=== PATIENT | female | born 1995 | race Caucasian/White ===

== ENCOUNTER → 2017-11-12 12:29 | Outpatient (CLI) | payer OTHER, SELFPAY ==
[2017-11-12 12:40] VITALS: BP 119/80; PULSE 58; RESP 16; TEMP 36.7; O2SAT 99; BMI 38.8
--- NOTE | 2017-11-12 12:46 | HTC.HP ---
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 History of Present Illness: 22 y.o.woman with Hemophilia B, heterozygous with 5% activity, comes in for follow up. She feels well, had 6 replacements therapies for D&C and joint pains. She feels well today. Power of Tester Vibrator Equipment: No Living Will: No Health History: Past Medical History (Last Reviewed 11/12/17 @ 12:39 by Tamra Rosen) Factor IX deficiency (Acute) Hemophilia B (Acute) Past Surgical History (Last Reviewed 11/12/17 @ 12:39 by Tamra Rosen) History of dilation and curettage (Acute) Family History (Last Reviewed 11/12/17 @ 12:39 by Tamra Rosen) Father Hemophilia Allergies/Adverse Reactions: Allergy/AdvReac Type Severity Reaction Status Date / Time aspirin AdvReac Severe Other Verified 11/12/17 12:39 Home Medications Medication Instructions Recorded No Known/Unobtainable [No Known 04/12/17 Home Medications] Risk Factors Social History Social History: No changes Smoking Status Never smoker Tobacco Risk Data: Tobacco Risk Smoking Status Never smoker Type of tobacco: Smokeless tobacco usage: Never Items/Day: Year started: Years used: Counseled to quit/cut down: Reason for no counseling performed: Reason for no pharmacotherapy: Tobacco use comments: Passive smoke exposure: Substance Risk Drug use: No Caffeine use [drinks/day]: 0 Alcohol use: No Type of alcohol: Drinks per day: Has patient felt the need to cut down: Has the patient been annoyed by complaints: Has the patient felt guilty about drinking: 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: Comments: Review of Systems Constitutional:: Denies: Fever, Sweats, Weight loss, Appetite change, Chills Cardiovascular:: Denies: Chest pain, Palpitations, Dyspnea on exertion, Orthopnea, PND, Shortness of breath Respiratory: Denies: Cough, Hemoptysis, Shortness of Breath, Wheezing Gastrointestinal:: Denies: Abdominal pain, Nausea, Vomiting, Diarrhea, Constipation, Hematochezia Genitourinary: Denies: Dysuria, Hematuria, 15, Flank pain Musculoskeletal:: Denies: Back pain, Myalgia, Arthralgia Skin: Denies: Rash, Skin Changes, Wounds Neurological:: Denies: Headache, Dizziness, Visual changes, Tinnitus, Hearing loss Psychiatric: Denies: Anxiety, Depression, Homicidal Ideations, Suicidal Ideations Vital Signs Height 5 ft 5 in Weight: 105.914 kg Weight in Pounds 233.5 lbs Pulse Ox 99 Temperature 98.1 F Pulse Rate 58 Respiratory Rate 16 Blood Pressure 119/80 Blood Pressure Position Sitting - Physical Exam General: Alert, Oriented x3, No apparent distress HEENT: Atraumatic, PERRLA, EOMI, Normocephalic Oropharynx:: Dry mucosa Neck:: Supple, Trachea midline. Negative for: JVD, bilateral Cardiac:: Regular rate, Regular rhythm, Normal S1, Normal S2. Negative for: Murmur Lungs: Clear to auscultation, Excusion symmetrical. Negative for: Rhonchi, Wheezes Abdomen:: Bowel sounds x 4, Soft, Non-tender, Non-distended. Negative for: Hepatosplenomegaly Extremities:: Negative for: Cyanosis, Edema Neurological: Neuro grossly intact Skin:: Negative for: Lesions, Rash, Petechiae, Ecchymosis Psychiatric:: Appropriate affect, Euthymic Lymphatics:: Negative for: Cervical lymphadenopathy, Supraclavicular lymphadenopathy, Axillary lymphadenopathy Assessment and Plan Hemophilia B, heterozygous with 5% activity. Clinically stable. Plan is to continue expectant management with factor replacement as needed. Primary Care Provider: Daryl Angela MD Referring Provider: Margarito Blancas MD
[2018-03-11 14:02] VITALS: BP 128/82; PULSE 89; RESP 14; TEMP 36.8; O2SAT 97; BMI 40.2
--- NOTE | 2018-03-11 14:23 | ONC.NEWHP3 ---
Subjective Date of Service:: 03/11/18 Chief Complaint: F/u for Hemophila B. History of Present Illness: 22 y.o.woman with Hemophilia B, heterozygous with 5% activity, comes in for follow up. She feels well, is 26 weeks . She feels well today. Power of Electric Meter Tester Helper: No Living Will: No Health History: Past Medical History (Last Reviewed 11/12/17 @ 12:39 by Tamra Rosen) Factor IX deficiency (Acute) Hemophilia B (Acute) Past Surgical History (Last Reviewed 11/12/17 @ 12:39 by Tamra Rosen) History of dilation and curettage (Acute) Family History (Last Reviewed 11/12/17 @ 12:39 by Tamra Rosen) Father Hemophilia Allergies/Adverse Reactions: Allergy/AdvReac Type Severity Reaction Status Date / Time aspirin AdvReac Severe Other Verified 03/11/18 14:02 Risk Factors Social History Social History: No changes Smoking Status Never smoker Tobacco Risk Data: Tobacco Risk Smoking Status Never smoker Type of tobacco: Smokeless tobacco usage: Never Items/Day: Year started: Years used: Counseled to quit/cut down: Reason for no counseling performed: Reason for no pharmacotherapy: Tobacco use comments: Passive smoke exposure: Substance Risk Drug use: No Caffeine use [drinks/day]: 0 Alcohol use: No Type of alcohol: Drinks per day: Has patient felt the need to cut down: Has the patient been annoyed by complaints: Has the patient felt guilty about drinking: 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: Comments: Review of Systems Constitutional:: Denies: Fever, Sweats, Weight loss, Appetite change, Chills Cardiovascular:: Denies: Chest pain, Palpitations, Dyspnea on exertion, Orthopnea, PND, Shortness of breath Respiratory: Denies: Cough, Hemoptysis, Shortness of Breath, Wheezing Gastrointestinal:: Denies: Abdominal pain, Nausea, Vomiting, Diarrhea, Constipation, Hematochezia Genitourinary: Denies: Dysuria, Hematuria, 15, Flank pain Musculoskeletal:: Denies: Back pain, Myalgia, Arthralgia Skin: Denies: Rash, Skin Changes, Wounds Neurological:: Denies: Headache, Dizziness, Visual changes, Tinnitus, Hearing loss Psychiatric: Denies: Anxiety, Depression, Homicidal Ideations, Suicidal Ideations Vital Signs Height 5 ft 5 in Weight: 109.769 kg Weight in Pounds 242.0 lbs Pulse Ox 97 Temperature 98.2 F Pulse Rate 89 Respiratory Rate 14 Blood Pressure 128/82 Blood Pressure Position Sitting - Physical Exam General: Alert, Oriented x3, No apparent distress Assessment and Plan Hemophilia B, heterozygous with 5% activity. 26 weeks. Plan is to continue expectant management. Will have factor replacement plan for delivery. RTC June 2018. 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
== END ==
PROVIDERS: Family Provider Family Medicine; PCP Family Medicine; Visit Provider Internal Medicine Medical Oncology
DX: O99.112 Other diseases of the blood and blood-forming organs and certain disorders involving the immune mechanism complicating pregnancy, second trimester (principal); D67 Hereditary factor IX deficiency; Z3A.26 26 weeks gestation of pregnancy

== ENCOUNTER → 2018-12-09 13:08 | Outpatient (CLI) | payer OTHER, SELFPAY ==
--- NOTE | 2018-12-09 13:14 | HTC.HP_ITS ---
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 Give May 2018, the child suffers from hemophilia and is being followed at [facility], his factor level was just above 1, at the present time he is on demand replacement Power of Independent Beauty Consultant: No Living Will: No Health History: Past Medical History (Last Reviewed 03/11/18 @ 14:02 by Esther Brown) Factor IX deficiency (Acute) Hemophilia B (Acute) Past Surgical History (Last Reviewed 03/11/18 @ 14:02 by Esther Brown) History of dilation and curettage (Acute) Family History (Last Reviewed 03/11/18 @ 14:02 by Esther Brown) Father Hemophilia Allergies/Adverse Reactions: Allergy/AdvReac Type Severity Reaction Status Date / Time aspirin AdvReac Severe Other Verified 12/09/18 13:26 ibuprofen AdvReac Other Verified 12/09/18 13:26 Risk Factors Social History Smoking Status Never smoker Tobacco Risk Data: Tobacco Risk Smoking Status Never smoker Type of tobacco: Smokeless tobacco usage: Items/Day: Year started: Years used: Counseled to quit/cut down: Reason for no counseling performed: Reason for no pharmacotherapy: Tobacco use comments: Passive smoke exposure: Substance Risk Drug use: Caffeine use [drinks/day]: Alcohol use: Type of alcohol: Drinks per day: Has patient felt the need to cut down: Has the patient been annoyed by complaints: Has the patient felt guilty about drinking: Has the patient needed an eye 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 resource 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: Comments: Review of Systems Constitutional:: Denies: Fever, Sweats, Weight loss, Appetite change, Chills Cardiovascular:: Denies: Chest pain, Palpitations, Dyspnea on exertion, Orthopnea, PND, Shortness of breath Respiratory: Denies: Cough, Hemoptysis, Shortness of Breath, Wheezing Gastrointestinal:: Denies: Abdominal pain, Nausea, Vomiting, Diarrhea, Constipation, Hematochezia Genitourinary: Denies: Dysuria, Hematuria, 15, Flank pain Musculoskeletal:: Denies: Back pain, Myalgia, Arthralgia Skin: Denies: Rash, Skin Changes, Wounds Neurological:: Denies: Headache, Dizziness, Visual changes, Tinnitus, Hearing loss Psychiatric: Denies: Anxiety, Depression, Homicidal Ideations, Suicidal Ideations - Physical Exam General: Alert, Oriented x3, No apparent distress HEENT: Atraumatic, PERRLA, EOMI, Normocephalic Oropharynx:: Dry mucosa Neck:: Supple, Trachea midline. Negative for: JVD, bilateral Cardiac:: Regular rate, Regular rhythm, Normal S1, Normal S2. Negative for: Murmur Lungs: Clear to auscultation, Excusion symmetrical. Negative for: Rhonchi, Wheezes Abdomen:: Soft, Non-tender, Non-distended. Negative for: Hepatosplenomegaly Extremities:: Negative for: Cyanosis, Edema Neurological: Neuro grossly intact Skin:: Negative for: Lesions, Rash, Petechiae, Ecchymosis Psychiatric:: Appropriate affect, Euthymic Lymphatics:: Negative for: Cervical lymphadenopathy, Supraclavicular lymphadenopathy Assessment and Plan Hemophilia annual screening visit. Reviewed: - On-demand therapy. - Appropriate oral hygiene and regular dental care is essential. - An appropriate exercise regimen encouraged for maintenance of a healthy weight, cardiovascular risk reduction, and positive effects on strength, flexibility, balance, joint stabilization, bone density, socialization, and psychological health. - Medicines that increase the risk of bleeding should be avoided namely anticoagulants, aspirin, and other nonsteroidal anti-inflammatory drugs (NSAIDs). - Herbal remedies and [id number] supplements such as fish oil, may increase bleeding risk. - Pain can be treated with local measures (eg, cold packs, immobilization, splinting), and acetaminophen. - Cardiovascular disease prevention : focus on diet, exercise, smoking avoidance, and control of hypertension and hypercholesterolemia. - Planning for invasive procedures and elective surgery. Patient was also evaluated by the Hemophilia multidisciplinary team on site and Dr Monterroso via video conferencing. Primary Care Provider: Daryl Angela MD Referring Provider:
[2018-12-09 13:26] VITALS: BP 120/83; PULSE 50; RESP 14; TEMP 36.5; O2SAT 96; BMI 40.1
== END ==
PROVIDERS: Family Provider Family Medicine; PCP Family Medicine; Visit Provider Internal Medicine Medical Oncology
DX: D67 Hereditary factor IX deficiency (principal)